=== PATIENT | female | born 1945 | race African-American/Black ===

== ENCOUNTER 2017-11-19 08:00 | Outpatient (CLI) | payer MEDICARE, MEDICAID ==
--- NOTE | 2017-11-13 15:43 | Pre-Procedure Note/Attestation ---
Pre-Procedure Note/Attestation Complete Prior to Procedure Planned Procedure: left Procedure Narrative: PHACO WITH ioL Indications for Procedure Pre-Operative Diagnosis: CATARACT Attestation I attest that I discussed the nature of the procedure; its benefits; risks and complications; and alternatives (and the risks and benefits of such alternatives ), prior to the procedure, with the patient (or the patient's legal visitor services representative). I attest that, if there was a reasonable possibility of needing a blood transfusion, the patient (or the patient's legal visitor services representative) was given the [facility] standardized written summary, pursuant to the [place] Blood Safety Act ([place] Health and Safety Code # 1645, as amended). I attest that I re-evaluated the patient just prior to the surgery and that there has been no change in the patient's H&P, except as documented below: ADRIEL QUINONEZ Nov 13, 2017 15:43
--- NOTE | 2017-11-13 15:45 | Opthalmology H&P ---
Ophthalmology H&P H&P Chief Complaint: decreased vision in left eye HPI Vision Affects Ability to: read, focus/use eyes together, manage personal affairs HPI Narrative BLURRY VISION Exam Visual Acuity: OD; NLP OS; 20/60 Tension: OD; 11 OS; 11 Eye Exam: normal OU: external exam, palpebral fissure-width, marginal reflex distance, levator function, corneas, anterior chambers, fundus exam; findings: lens - OD; NLP OS; NS Assessment/Plan Diagnosis: (1) Nuclear age-related cataract, left eye Treatment Plan: cataract extraction w/ lens implant Goals of Treatment: improvement of vision, enhance quality of life Attestation Attestation The risks and benefits of the surgery as well as alternative procedures were explained to the patient in detail. ADRIEL QUINONEZ Nov 13, 2017 15:45
[2017-11-15 09:55] LABS: BASOPHILS % (AUTO) 0.9 % (0.0-2.0); EOSINOPHILS % (AUTO) 2.6 % (0.0-3.0); HEMATOCRIT 36.8 % (37.0-47.0); HEMOGLOBIN 12.1 G/DL (12.0-16.0); MEAN CORPUSCULAR VOLUME 95 FL (80-99); MONOCYTES % (AUTO) 9.8 % (1.0-10.0); NEUTROPHILS % (AUTO) 40.8 % (45.0-75.0); PLATELET COUNT 234 K/UL (150-450); RED BLOOD COUNT 3.89 M/UL (4.20-5.40); RED CELL DISTRIBUTION WIDTH 11.1 % (11.6-14.8); WHITE BLOOD COUNT 5.1 K/UL (4.8-10.8)
[2017-11-15 10:16] LABS: ANION GAP 8 mmol/L (5-15); BLOOD UREA NITROGEN 20 mg/dL (7-18); CALCIUM 9.9 MG/DL (8.5-10.1); CARBON DIOXIDE 29 MMOL/L (21-32); CHLORIDE 103 MMOL/L (98-107); CREATININE 0.7 MG/DL (0.55-1.30); POTASSIUM 4.3 MMOL/L (3.5-5.1); SODIUM 140 MMOL/L (136-145)
[~2017-11-19] VITALS: Ht 170.2 cm; Wt 63.5 kg
[~2017-11-19 08:00] MED LIST: Akten 3.5% 1ml Btl LEFT EYE ONE; Cyclopentolate 1% Opth Sol 2ml LEFT EYE SCH; Diclofenac Sod 0.1% Op Soln LEFT EYE SCH; Phenylephrine 10% Opth Soln 5ml LEFT EYE SCH; Proparacaine 0.5% Opth Soln 15ml LEFT EYE ONE; Tetracaine 0.5% Opth 4ml Soln LEFT EYE ONE; Tobramycin Op Soln 0.3% 5ml LEFT EYE SCH; Tropicamide 1% Opth 15ml Soln LEFT EYE SCH
--- NOTE | 2017-11-21 16:39 | Cardiology Report ---
APPROVED REPORT EKG Measurement Heart [id number] Normal sinus rhythm Normal ECG
== END 2017-11-19 10:00 | disposition home or self-care (01) ==
LOC: EKG 08:00 → EDSTATUS 11:30
DX: H25.12 Age-related nuclear cataract, left eye (principal)
CPT/HCPCS: 36415; 80048; 85025; 85610; 85730; 93005